=== PATIENT | male | born 1965 | race Caucasian/White ===

== ENCOUNTER → 2021-10-13 | Outpatient (CLI) | payer OTHER ==
--- NOTE | 2021-10-13 18:21 | CONS ---
CONSULTATION DATE OF SERVICE: 10/13/2021 This 55-year-old gentleman has [facility] for obstructive sleep apnea-hypopnea syndrome. HISTORY OF PRESENT ILLNESS/SLEEP-WAKE EVALUATION: Patient has had history of obstructive sleep apnea for about 15 years. He is on treatment with CPAP every night for the whole night. His sleep schedule on weekdays is from 7:30 p.m. until 8 a.m., on weekends from 9:30 p.m. to 7:30 a.m. No problems with falling asleep. According to the patient, while using his CPAP he does not snore and he sleeps through the night without awakenings. If he is not using CPAP, he has loud snoring, stops breathing during sleep, and has multiple awakenings from sleep. Without CPAP, Millen Sleepiness Scale increased to 13. With the CPAP, no sleepiness and he does not take any naps. I checked the patient's CPAP unit. CPAP pressure is 12 cm of water. Usage is 100% of nights, average 10 hours per night. Leak is 5 L/minute, which is normal. Apnea- hypopnea index is only 0.8, which is perfect. The patient using a nasal mask Eson, medium size. PAST MEDICAL HISTORY: Positive for hypertension, coronary artery disease, hyperlipidemia, stent insertion, depression, anxiety, liver problems, migraine, sinus problems. PAST SURGICAL HISTORY: Three stent insertions to coronary arteries. Hernia repair surgeries in 1984 and 1987. SOCIAL HISTORY: Negative for smoking. Alcohol consumption very rarely. MEDICATIONS: 1. Ozempic 1 mg once a week. 2. Humalog 40 mg three times a day. 3. Basaglar 50 units twice a day. 4. Atorvastatin 80 mg once a day. 5. Metoprolol 25 mg once a day. 6. Isosorbide 30 mg once a day. 7. Aspirin 81 mg once a day. 8. Cymbalta 60 mg once a day. FAMILY HISTORY: Heart problems, hyperlipidemia. REVIEW OF SYSTEMS: Basically negative while on treatment with CPAP. No episodes of chest pain. No abdominal pain. No headaches. No fevers. No double vision. No recent chest pain. No shortness of breath. No abdominal pain. No bleeding episodes. No blood in the urine. No seizure episodes. PHYSICAL EXAMINATION: GENERAL: Pleasant patient in no distress. VITAL SIGNS: BP 110/70, HR 97, RR 15, height 5 feet 5 inches, weight 253.4, temperature 97.0, oxygen saturation at room air 97%. HEENT: PERRLA, EOMI, evaluation of oropharynx showed tongue protrudes midline. Low position of soft palate. NECK: Supple, no JVD. Thyroid is not palpable. Neck is wide; 21-3/4 inches in circumference. LUNGS: Clear to percussion and to auscultation. Good air exchange. No wheezing or rhonchi. HEART: S1, S2 regular. No murmurs, gallops, or rubs. ABDOMEN: Obese. EXTREMITIES: No clubbing or cyanosis. LOAD MIXER: Awake, alert, and oriented X3. Cranial nerves 2 to 7 intact. There is no fasciculation or atrophy. noted. No focal deficits observed. IMPRESSION: 1. Obstructive sleep apnea-hypopnea syndrome for 15 years. Patient demonstrated 100% compliance with treatment. Normal respiration on CPAP. 2. Low position of soft palate, wide neck; obstructive sleep apnea-hypopnea syndrome. 3. Obesity; body mass index 41.4. 4. Hypertension. 5. Diabetes mellitus. 6. Coronary artery disease, status post 3 stent insertions. 7. Hyperlipidemia. 8. History of depression and anxiety. 9. History of liver problems. 10.History of migraines. 11.History of sinus problems. 12.Status post hernia repair. PLAN: 1. Prescription for all necessary CPAP supplies have been written and sent to [facility]. 2. We should get results of previous sleep studies, including diagnostic sleep study. 3. Continue to use CPAP equipment every night for the whole night. 4. Sleep hygiene with regular time in bed for at least 7-1/2 to 8 hours. 5. No driving if feeling any sleepiness. 6. Follow-up visit in 6 months or earlier if patient has any problems. Thank you very much for referring this patient for consultation. Sincerely, Hermilo Buckner MD, PhD, FAASM Diplomat of [employer] Sleep Medicine Board of [employer] [facility] [place] MMODL / ADIN: [id number] /
== END ==
LOC: SLEEP 15:35
PROVIDERS: ATTEND Internal Medicine
DX: G47.33 Obstructive sleep apnea (adult) (pediatric) (principal); E66.9 Obesity, unspecified; I10 Essential (primary) hypertension; E11.9 Type 2 diabetes mellitus without complications; I25.10 Atherosclerotic heart disease of native coronary artery without angina pectoris; E78.5 Hyperlipidemia, unspecified; F32.A Depression, unspecified; F41.9 Anxiety disorder, unspecified; G43.909 Migraine, unspecified, not intractable, without status migrainosus; Z98.890 Other specified postprocedural states; Z68.41 Body mass index [BMI] 40.0-44.9, adult; Z99.89 Dependence on other enabling machines and devices; Z87.19 Personal history of other diseases of the digestive system; Z95.5 Presence of coronary angioplasty implant and graft; Z79.4 Long term (current) use of insulin; Z79.82 Long term (current) use of aspirin; Z79.899 Other long term (current) drug therapy
CPT/HCPCS: 99211

== ENCOUNTER → 2023-09-13 | Outpatient (CLI) | payer MEDICARE ==
--- NOTE | 2023-09-13 16:35 | US ---
EXAMINATION TYPE: US venous doppler duplex LE LT DATE OF EXAM: 09/13/2023 4:24 PM COMPARISON: NONE CLINICAL INDICATION: Male, 57 years old with history of I82.402 ACUTE EMBOLISM AND THOMBOS; Left ankl e and calf swelling. Pt states he is taking BP medication and a side effect is swelling in calves. No pain. No hx of DVT. Takes an aspirin daily. SIDE PERFORMED: Left TECHNIQUE: The lower extremity deep venous system is examined utilizing real time linear array sonog roxann with graded compression, doppler sonography and color-flow sonography. VESSELS IMAGED: Common Femoral Vein Deep Femoral Vein Greater Saphenous Vein * Femoral Vein Popliteal Vein Small Saphenous Vein * Proximal Calf Veins (* superficial vessels) Left Leg: No evidence for DVT in vessels visualized. Groin limited due to body habitus IMPRESSION: Grayscale, color doppler, spectral doppler imaging performed of the deep veins of the lo wer extremities. There is normal flow, compressibility, vascular waveforms.
== END | disposition home or self-care (01) ==
LOC: RADUSWWP 15:39
PROVIDERS: ATTEND Podiatrist Foot & Ankle Surgery
DX: I82.492 Acute embolism and thrombosis of other specified deep vein of left lower extremity (principal); M79.89 Other specified soft tissue disorders; Z79.82 Long term (current) use of aspirin

== ENCOUNTER → 2023-11-01 | Day surgery (SDC) | payer MEDICARE ==
[~2023-11-01] MED LIST: ALPRAZolam 0.25 MG TAB PO PRN; ALPRAZolam 0.5 MG TAB PO PRN; ASPIRIN 325 MG TAB PO STA; ASPIRIN 81 MG PO SCH; ATORVASTATIN 80 MG TAB PO SCH; ATROPINE SULFATE 0.1 MG/ML 10ML SYRINGE IV PRN; CLOPIDOGREL 75 MG TAB ONE; CLOPIDOGREL 75 MG TAB PO ONE; CLOPIDOGREL 75 MG TAB PO SCH; DAPAGLIFLOZIN PROPANEDIOL 10 MG TABLET PO SCH; HEPARIN SODIUM 1,000 UN/ML (10ML VL) IV ONE; HEPARIN SODIUM 1,000 UN/ML (10ML VL) ONE; INSULIN ASPART (NovoLOG) 100 UNIT/ML VIAL SQ ONE; IOPAMIDOL-370 100ML BTL INJ ONE; ISOSORBIDE MONONITRATE ER 30 MG TAB.ER.24H PO SCH; LIDOCAINE 1% INJ 10MG/ML (20 ML MDV) SQ ONE; LOSARTAN 50 MG TAB PO SCH; MAG HYDROX/AL HYDROX/SIMETH 30 ML CUP PO PRN; METOPROLOL TARTRATE 25 MG TAB PO SCH; MIDAZOLAM 2 MG/2 ML VIAL IVP ONE; NITROGLYCERIN SL TABS 0.4 MG TAB SUBLINGUAL PRN; RX INFO: IV CONTRAST WAS GIVEN 1 EACH MISC MISCELLANE PRN; SODIUM CHLORIDE 0.9% 1,000 ML in EMPTY BAG 1 BAG IV SCH; VERAPAMIL 2.5 MG/ML 2 ML AMP ONE; VERAPAMIL SYRINGE (5 MG/10 ML) INTRAARTER ONE; ZOLPIDEM 5 MG TAB PO PRN; fentaNYL (PF) 50 MCG/ML 2 ML AMP IVP ONE; fentaNYL (PF) 50 MCG/ML 2 ML AMP ONE
[2023-11-01 07:41] LABS: Glucose,Whole Blood 213 mg/dL (70-110)
[2023-11-01 07:49] LABS: Basophils # (A) 0.1 k/uL (0-0.2); Basophils % (A) 1 %; Eosinophils # (A) 0.3 k/uL (0-0.7); Eosinophils % (A) 5 %; HCT 46.9 % (39.0-53.0); HGB 16.2 gm/dL (13.0-17.5); Lymphocytes # (A) 1.8 k/uL (1.0-4.8); Lymphocytes % (A) 28 %; MCH 31.1 pg (25.0-35.0); MCHC 34.6 g/dL (31.0-37.0); MCV 89.8 fL (80.0-100.0); Mean Platelet Volume 9.9; Monocytes # (A) 0.4 k/uL (0-1.0); Monocytes % (A) 7 %; Neutrophils # (A) 3.5 k/uL (1.3-7.7); Neutrophils % (A) 56 %; Platelet Count 132 k/uL (150-450); RBC 5.23 m/uL (4.30-5.90); RDW 14.3 % (11.5-15.5); WBC 6.2 k/uL (3.8-10.6)
[2023-11-01 08:03] LABS: African American GFR (CKD) >90 (>60 ml/min/1.73 sqM); Anion Gap 11 mmol/L; Blood Urea Nitrogen 22 mg/dL (9-20); Calcium 8.8 mg/dL (8.4-10.2); Carbon Dioxide 23 mmol/L (22-30); Chloride 98 mmol/L (98-107); Glucose 196 mg/dL (74-99); Non-African American GFR(CKD) >90 (>60 ml/min/1.73 sqM); Sodium 132 mmol/L (137-145)
[2023-11-01 08:12] VITALS: RESP 16; TEMP 98.5
[2023-11-01 08:16] LABS: Potassium 4.7 mmol/L (3.5-5.1)
[2023-11-01] MEDS: HEPARIN SODIUM 1,000 UN/ML (10ML VL) IV ONE ×2 (09:42→09:57)
--- NOTE | 2023-11-01 10:52 | P.CARDCATH ---
Date of Procedure: 11/01/23 Description of Procedure: Cardiac Catheterization: The patient is a 58-year-old male with a known history of hypertension, hyperlipidemia, diabetes mellitus and a prior history of PCI who has been complaining of symptoms of progressive dyspnea and had an abnormal MPI. Recommendations were made regarding cardiac catheterization, the risks and the complications were discussed with the patient who is in full understanding and agreement. Procedure Description: Patient was brought to shop [facility] in fasting semi-sedated state after receiving Fentanyl and Benadryl achieiving moderate conscious sedated state. Using Xylocaine Anesthesia and modified Seldinger technique, a 6-[place] sheath was introduced in the right radial artery . Subsequently, selective coronary angiography was performed using a 5-[place] 3.5 bend Holden catheter. Multiple views of the coronary artery including hemiaxial views were obtained. The pigtail catheter was used to cross the aortic valve and LVEDP was calculated. PCI: After removing the catheters a 6-[place] AL 0.75 guiding catheter was introduced in the system and after cannulating the right coronary ostium a 0.014 BMW J-wire was advanced across the lesion and positioned distally here at subsequently a 2.5 x 12 mm NC Treck was advanced and one inflation at 8 minna was done. After removing the balloon a [employer] [place] eye IVUS introduced and images were obtained subsequently a 3.0 x 18 mm Xience rickey point stent was deployed at 16 minna. After removing the balloon a 2.75 x 15 mm Xience rickey point stent was deployed distal to the first one at 16 minna. Repeat IVUS is performed and after removing the balloon 3.25 x 15 mm NC Treck was advanced and 2 inflations at 10 minna were done. After the last inflation the wire was removed and images were obtained and revealed stable successful stenting. Following that, catheter and sheath were removed. Hemostasis was obtained with deployment of vascular band . There was no immediate complication. Patient was returned to room in stable condition. Of note, the patient received a total of 12,000 units of intravenous heparin as well as intra-arterial verapamil. He received an oral loading dose of clopidogrel. He had EKG changes with the inflations that resolved at the end of the procedure but no chest discomfort. Findings: Fluoroscopy: Calcifications of the coronary arteries were noted. Left main: This is a large-size vessel bifurcating into LAD and circumflex, left main has no obstructive disease LAD: This is a large-size vessel, reaching to the apex with a wraparound the apex segment. The proximal and mid LAD stented with no significant in-stent restenosis. There is a 30-40% plaque in the mid distal LAD. The rest of the vessel has no high-grade stenosis Left circumflex: This is a nondominant vessel large in caliber giving rise to a very proximal obtuse marginal branch the second and third obtuse marginal branch have mild intimal disease with no high-grade stenosis RCA: This is a large dominant vessel bifurcating distally to PDA and PLV. The mid RCA has diffuse intimal disease of 20-30% the distal segment prior to the bifurcation has a 99% stenosis. The PLV and PDA have no high-grade stenosis Left Ventriculogram: Not performed Hemodynamics: There was no gradient across the aortic valve , LVEDP was 12-14 mmHg Conclusion: 1. Calcified coronary arteries 2. Severe stenosis in the distal RCA 3. Patent stent in the proximal and mid LAD 4. Successful stenting of the distal RCA with reduction of stenosis from 99% to less than 5% with intravascular ultrasound imaging Recommendations: The patient will continue on aspirin and clopidogrel for 6 months without any interruption in addition to aggressive coronary risks modification, attempting to maintain LDL below 70 mg/dL. The findings and the recommendations were discussed with the patient and the family and they were in full understanding and agreement. Duration of sedation is 53 minutes.
[2023-11-01 16:58] VITALS: BP 138/78; PULSE 92
== END | disposition home or self-care (01) ==
LOC: CATHCVL 07:06
PROVIDERS: ATTEND Internal Medicine Interventional Cardiology
DX: I25.10 Atherosclerotic heart disease of native coronary artery without angina pectoris (principal); I10 Essential (primary) hypertension; E78.5 Hyperlipidemia, unspecified; E11.9 Type 2 diabetes mellitus without complications; F32.A Depression, unspecified; Z79.84 Long term (current) use of oral hypoglycemic drugs; Z79.899 Other long term (current) drug therapy; Z87.891 Personal history of nicotine dependence
CPT/HCPCS: 92978; 93458; 80048; 85025; 99152; 99153 ×2; C9600; C1769 ×3; C1894; C1753; C1874 ×2; C1887; C1725 ×2; J2250; J2001; J3010; J1644; Q9967

== ENCOUNTER → 2024-12-04 | Outpatient (CLI) | payer BC ==
[2024-12-04 15:26] LABS: ALT 34 U/L (10-49); AST 34 U/L (14-35); Albumin 4.3 g/dL (3.8-4.9); Albumin/Globulin Ratio 1.79 Ratio (1.60-3.17); Alkaline Phosphatase 56 U/L (41-126); Blood Urea Nitrogen 16.8 mg/dL (9.0-27.0); Calcium 9.2 mg/dL (8.7-10.3); Carbon Dioxide 24.6 mmol/L (21.6-31.8); Chloride 101 mmol/L (96-109); Globulin 2.4 g/dL (1.6-3.3); Glucose 191 mg/dL (70-110); Sodium 137 mmol/L (135-145); Total Bilirubin 0.5 mg/dL (0.3-1.2); Total Protein 6.7 g/dL (6.2-8.2)
[2024-12-04 19:44] LABS: Urine Creatinine 45.6 mg/dL (39.0-259.0)
== END | disposition home or self-care (01) ==
LOC: LABWHC1 09:39
PROVIDERS: ATTEND Internal Medicine Endocrinology, Diabetes & Metabolism
DX: E11.65 Type 2 diabetes mellitus with hyperglycemia (principal)
CPT/HCPCS: 36415; 80053; 80061; 82043; 82570; 83036; 83721; 84443

== ENCOUNTER → 2024-12-08 | Outpatient (CLI) | payer BC | END | disposition home or self-care (01) | LOC: LABWHC1 06:53 | PROVIDERS: ATTEND Internal Medicine Endocrinology, Diabetes & Metabolism | DX: E11.65 Type 2 diabetes mellitus with hyperglycemia (principal) | CPT/HCPCS: 36415; 82533; 84305 ==